=== PATIENT | female | born 2000 | race African-American/Black ===

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

== ENCOUNTER 2019-04-26 05:18 | Inpatient (IN) ==
[2019-04-26] MEDS ORDERED: ONDANSETRON 4 MG/2 ML VIAL IV PRN ×2 (05:29→09:05)
[2019-04-26] MEDS ORDERED: ceFAZolin 2,000 MG in PREMIX 1 EACH IV ONE (05:30)
[2019-04-26] MEDS ORDERED: FAMOTIDINE 20 MG/2 ML VIAL IV ONE (05:31)
[2019-04-26] MEDS ORDERED: CITRIC ACID/SODIUM CITRATE 30 ML UDCUP PO ONE (05:31)
[2019-04-26] MEDS ORDERED: OXYTOCIN/LR 20 UNIT/1,000 ML BAG IV ONE (05:32)
[2019-04-26 05:52] LABS: Basophils % 0.2 % (0.0-0.8); Eosinophils # 0.1 10*3/uL (0.0-0.87); Hematocrit 26.7 VOL% (35.7-47.0); Hemoglobin 8.3 GM/DL (12.0-16.0); Immature Granulocytes % 2.4 %; Immature Granulocytes Absolute 0.25 #; Lymphocytes # 1.8 10*3/uL (1.4-4.0); Mean Corpuscular HGB Conc 31.1 GM/DL (32-36); Mean Corpuscular Volume 64.6 FL (87-102); Mean Platelet Volume 8.8 FL (9.6-12.0); Monocytes % 5.4 % (1.7-12.7); Platelet Count 229 T/CUMM (130-400); Red Blood Count 4.13 MC/CUMM (3.8-5.5); Red Cell Distribution Width 20.5 % (9.3-17.3); White Blood Count 10.2 T/CUMM (4-12)
[2019-04-26] MEDS: LACTATED RINGERS 1,000 ML IV SCH ×3 (05:53→15:50)
[2019-04-26 06:16] LABS: Alanine Aminotransferase < 9 U/L (13-56); Albumin 2.5 G/DL (3.4-5.0); Alkaline Phosphatase 188 U/L (45-117); Aspartate Amino Transferase 11 U/L (0-37); Blood Urea Nitrogen 4 MG/DL (7-18); Calcium 8.5 MG/DL (8.5-10.1); Estimated Glom Filtration Rate 175 ML/MIN; Glucose 78 MG/DL (74-106); Osmolality,Calculated 268.8 MOS/KG (273-304); Total Protein 6.8 G/DL (6.4-8.3)
[2019-04-26] MEDS ORDERED: ROPIVACAINE 0.5% 30 ML VIAL ONE (06:50)
[2019-04-26] MEDS ORDERED: DEXAMETHASONE 4 MG/1 ML VIAL ONE (06:50)
[2019-04-26] MEDS ORDERED: BISACODYL 10 MG SUPP RECTAL PRN (09:05)
[2019-04-26] MEDS ORDERED: ACETAMINOPHEN 325 MG TABLET PO PRN (09:05)
[2019-04-26] MEDS ORDERED: BENZOCAINE/MENTHOL LOZENGE 18/BOX PO PRN (09:05)
[2019-04-26] MEDS ORDERED: LACTATED RINGERS 1,000 ML IV SCH (09:30)
[2019-04-26 09:40] LABS: Apearance,Urine CLEAR (Clear); Bilirubin,Urine Negative (Negative); Blood, Urine Negative (Negative); Glucose,Urine (UA) Negative (Negative); Ketones,Urine Negative (Negative); Nitrite,Urine Negative (Negative); Protein,Urine Negative; RBC,Urine <1 /HPF (0-4); Urine Color Straw (Yellow); Urine Specific Gravity 1.006 (1.001-1.035); Urine Urobilinogen < 2.0 EU/DL (0.2-1.0); WBC,Urine <1 /HPF (0-6)
[2019-04-26] MEDS ORDERED: PHENYLEPHRINE 1 MG/10 ML SYRINGE IV ONE (09:43)
[2019-04-26] MEDS ORDERED: fentaNYL 100 MCG/2 ML VIAL ONE (09:43)
[2019-04-26] MEDS ORDERED: MIDAZOLAM 2 MG/2 ML VIAL ONE (09:44)
[2019-04-26] MEDS ORDERED: BUPIVACAINE SPINAL 0.75% 2 ML AMP SPINAL ONE (09:44)
[2019-04-26] MEDS ORDERED: MORPHINE 10 MG/10 ML VIAL ONE (09:44)
[2019-04-26] MEDS: ceFAZolin 1,000 MG in SYRINGE 1 EACH IV SCH ×2 (15:53→22:47)
[2019-04-26] MEDS: FERROUS SULFATE 325 MG TABLET PO SCH (21:11)
[2019-04-27 06:12] LABS: Basophils % 0.2 % (0.0-0.8); Eosinophils % 0.1 % (0.00-10.9); Hematocrit 23.4 VOL% (35.7-47.0); Hemoglobin 7.3 GM/DL (12.0-16.0); Immature Granulocytes % 1.8 %; Immature Granulocytes Absolute 0.29 #; Lymphocytes # 1.3 10*3/uL (1.4-4.0); Lymphocytes % 8.1 % (21.3-54.2); Mean Corpuscular HGB Conc 31.2 GM/DL (32-36); Mean Platelet Volume 9.1 FL (9.6-12.0); Monocytes % 8.9 % (1.7-12.7); Neutrophils % 80.9 % (38.7-73.9); Platelet Count 223 T/CUMM (130-400); Red Cell Distribution Width 19.8 % (9.3-17.3); White Blood Count 16.2 T/CUMM (4-12)
[2019-04-27] MEDS: FERROUS SULFATE 325 MG TABLET PO SCH ×4 (08:40→23:42)
[2019-04-27] MEDS: DOCUSATE SODIUM 100 MG CAPSULE PO PRN ×2 (08:40→21:20)
[2019-04-27] MEDS: IBUPROFEN 800 MG TABLET PO PRN ×2 (09:39→19:55)
[2019-04-27] MEDS: MAGNESIUM HYDROXIDE SUSP 30 ML UDCUP PO PRN (12:44)
[2019-04-28 07:48] VITALS: BP 104/50
[2019-04-28] MEDS: FERROUS SULFATE 325 MG TABLET PO SCH (08:37)
[2019-04-28] MEDS: DOCUSATE SODIUM 100 MG CAPSULE PO PRN (08:38)
[2019-04-28] MEDS: MAGNESIUM HYDROXIDE SUSP 30 ML UDCUP PO PRN (08:38)
== END 2019-04-28 13:35 | disposition home or self-care (01) | DRG 540 ==
LOC: N.LD 05:18 → N.OB 12:30
PROVIDERS: ADMIT Specialist; ATTEND Specialist
PROC: LDCSECT (ICD-10-PCS; 2019-04-26 09:15)